=== PATIENT | female | born 1965 | race Caucasian/White ===

== ENCOUNTER 2022-05-10 14:31 | Emergency (ER) | payer BC | END 2022-05-10 17:20 | disposition home or self-care (01) | LOC: ER1 14:31 | DX: S00.83XA Contusion of other part of head, initial encounter (principal); S20.212A Contusion of left front wall of thorax, initial encounter; S80.212A Abrasion, left knee, initial encounter; I10 Essential (primary) hypertension; K21.9 Gastro-esophageal reflux disease without esophagitis; W01.10XA Fall on same level from slipping, tripping and stumbling with subsequent striking against unspecified object, initial encounter; Y92.009 Unspecified place in unspecified non-institutional (private) residence as the place of occurrence of the external cause | CPT/HCPCS: 70450; 71111; 90471; 90715; 99284 ==